=== PATIENT | female | born 1955 | race Caucasian/White ===

== ENCOUNTER 2024-12-02 13:10 | Emergency (ER) | payer MEDICARE, MEDICAID ==
[2024-12-02] MEDS ORDERED: Sodium Chloride 0.9% 10 ML Syringe FLUSH PRN (13:18)
[2024-12-02 13:44] LABS: BASOPHILS PERCENT AUTO 0.4 % (0.0-1.0); EOSINOPHILS PERCENT AUTO 2.4 % (1.0-3.0); LYMPHOCYTES PERCENT AUTO 21.0 % (20.5-50.1); MONOCYTES PERCENT AUTO 12.4 % (2-8); NEUTROPHILS PERCENT AUTO 63.8 % (42.2-75.2); PLATELET COUNT,PLT 352 10^3/uL (150-450); RED BLOOD CELL COUNT 4.33 10^6/uL (4.2-5.4); WHITE BLOOD CELL COUNT,WBC 9.0 10^3/uL (5.0-10.0)
[2024-12-02 14:05] LABS: A/G RATIO 1.0; ALANINE AMINOTRANSFERASE,ALT 23 U/L (14-59); ASPARTATE AMNIOTRANSFERASE,AST 14 U/L (15-37); BILIRUBIN TOTAL 0.4 mg/dL (0.2-1.0); BLOOD UREA NITROGEN,BUN 13 mg/dL (7-18); CARBON DIOXIDE,CO2 34 mmol/L (21-32); CHLORIDE,CL 103 mmol/L (98-107); CREATININE 0.86 mg/dL (0.55-1.02); EST CRCL DRUG DOSING (CG) 54.06 mL/min; ESTIMATED GFR 74 mL/min (>=60); GLUCOSE RANDOM 110 mg/dL (70-99); POTASSIUM,K 4.1 mmol/L (3.5-5.1); PROTEIN TOTAL,TP 7.2 g/dL (6.4-8.2); SODIUM,NA 143 mmol/L (136-145)
[2024-12-02 14:11] LABS: LACTIC ACID 0.5 mmol/L (0.4-2.0)
[2024-12-02] MEDS: Ketorolac 30 MG/ML SDV IVPUSH ONE (14:54)
[2024-12-02 15:10] LABS: APPEARANCE,URINE SLIGHTLY CLOUDY (CLEAR); GLUCOSE,URINE NEGATIVE (NEGATIVE); OCCULT BLOOD,URINE NEGATIVE (NEGATIVE)
[2024-12-02] MEDS ORDERED: Norepinephrine Bit/D5W Premix 4 MG/250 ML BAG IV SCH (17:15)
== END 2024-12-02 16:52 | disposition home or self-care (01) ==
LOC: DL.ED 13:10
DX: M54.50 Low back pain, unspecified (principal); K59.00 Constipation, unspecified; F41.9 Anxiety disorder, unspecified; Z88.5 Allergy status to narcotic agent; Z88.1 Allergy status to other antibiotic agents; Z88.8 Allergy status to other drugs, medicaments and biological substances; Z91.040 Latex allergy status
CPT/HCPCS: 36415; 74176; 80053; 81003; 83605; 83735; 83880; 85025; 86140; 87040; 96374; 99284; J1885